=== PATIENT | female | born 1970 | race Hispanic/Latino ===

== ENCOUNTER → 2022-10-05 | Outpatient (CLI) | payer OTHER, SELFPAY ==
[2022-10-05 12:33] LABS: Vitamin D,25 Hydroxy 24.4 ng/mL
[2022-10-05 12:43] LABS: Absolute Lymphocyte Count 1.85 X10^3/uL (0.83-4.51); Absolute Neutrophil Count 2.3 X10^3/uL (2.0-7.7); Basophil# 0.03 X10^3/uL; Basophil% 0.6 % (0-1); Eosinophil# 0.12 X10^3/uL; Eosinophils% 2.5 % (0-5); Hematocrit 35.3 % (37-47); Hemoglobin 11.6 g/dL (12.0-15.0); Lymphocyte # 1.85 X10^3/ul (0.83-4.51); Lymphocyte % 38.9 % (19-41); Mean Corp Hgb Conc 32.9 g/dL (32-36); Mean Corpuscular Hgb 29.9 pg (27.0-32.0); Mean Platelet Vol. 9.5 fl (6.2-12.0); Monocyte# 0.43 X10^3/uL; NRBC Flagged by Analyzer 0 % (0-5); Neutrophil # 2.31 X10^3/uL (2.7-7.7); Neutrophil % 48.6 % (47-70); Platelet Count 249 K/mm3 (150-450); RBC Distribution Width CV 13.6 % (11.6-14.6); RBC Distribution Width SD 45.2 fl (35.1-43.9); Red Blood Count 3.88 M/mm3 (4.2-5.4); White Blood Count 4.8 K/mm3 (4.4-11.0)
[2022-10-05 12:46] LABS: ALB/GLOB Ratio 1.1 RATIO (0.9-2.4); AST(SGOT) 263 U/L (15-37); Alanine Aminotransfer ALT/SGPT 83 U/L (13-56); Albumin, Serum 3.7 g/dL (3.2-5.0); Alkaline Phosphatase 64 U/L (45-117); Anion Gap 6 (5-15); BUN 16 mg/dL (7-18); BUN/Creat Ratio 20.2 RATIO (10-20); Calcium,Total 8.8 mg/dL (8.5-10.1); Chloride 111 mmol/L (98-107); Cholesterol 223 mg/dL (200); Creatinine, Serum 0.79 mg/dL (0.55-1.02); EST Glomerular Filtration Rate 81 mL/min (>60); Est Glom Filt Rate - Afr Amer 98 mL/min (>60); Globulin 3.4 g/dL (2.2-4.2); Glucose 85 mg/dL (74-106); High Density Lipoprotein 67 mg/dL; Protein, Total 7.1 g/dL (6.4-8.2); Sodium Level 142 mmol/L (136-145); Thyroid Stim Hormone (TSH) 1.51 uIU/mL (0.358-3.74); Triglycerides 58 mg/dL; Very Low Density Lipoprotein 12 mg/dL (5-40)
== END | disposition home or self-care (01) ==
LOC: BIMLAB 09:09
PROVIDERS: PCP Internal Medicine; Referring Provider Internal Medicine; Visit Provider Internal Medicine
DX: E03.9 Hypothyroidism, unspecified (principal); F41.9 Anxiety disorder, unspecified; Z13.6 Encounter for screening for cardiovascular disorders
CPT/HCPCS: 36415; 80053; 80061; 82306; 84443; 85025

== ENCOUNTER → 2022-10-06 | Outpatient (CLI) | payer OTHER, SELFPAY ==
--- NOTE | 2022-10-06 07:46 | BI_ITS ---
MAMMOGRAPHY - BILATERAL SCREENING REASON FOR EXAM: Female, 52 years old. Routine annual screening examination. PERTINENT HISTORY: Cousin with breast cancer. No personal history of breast cancer. Bilateral breast implants in 2010. TECHNIQUE: Digital bilateral breast yasmeen (3D mammographic acquisition) in the CC and MLO projections. 2-D mediolateral oblique (MLO) and craniocaudad (CC) views of both breasts were obtained. Implant displacement views were also obtained. CAD: Full Field Digital Mammography with Computer Added Detection was performed. COMPARISON: None. FINDINGS: Breast Composition: There are scattered areas of fibroglandular density. There are no dominant masses or suspicious calcifications. Intact appearance of bilateral breast implants. No other significant abnormalities are identified. BI/SCRN MAMM (CAD)W/YASMEEN BILAT IMPRESSION: Negative screening mammogram. Yearly followup mammogram recommended. (A) ASSESSMENT CATEGORY: BIRADS Category 2: Benign. A letter regarding these results will be sent to the patient by the facility within 30 days. Approximately 10% of breast cancers are not detected by mammography. A normal mammogram should not delay biopsy of a clinically suspicious abnormality. Electronically Signed: Lowell Márquez DO at 15:08 EDT ,
== END | disposition home or self-care (01) ==
LOC: OPBI 07:45
PROVIDERS: PCP Internal Medicine; Referring Provider Internal Medicine; Visit Provider Internal Medicine
DX: Z12.31 Encounter for screening mammogram for malignant neoplasm of breast (principal)
CPT/HCPCS: 77063; 77067

== ENCOUNTER → 2022-10-12 | Outpatient (CLI) | payer OTHER, SELFPAY ==
--- NOTE | 2022-10-12 07:28 | US_ITS ---
Examination: Right upper quadrant ultrasound INDICATION: Elevated liver enzymes. TECHNIQUE: A dedicated right upper quadrant ultrasound was obtained including Doppler imaging. COMPARISON: None FINDINGS: Within the right hepatic lobe there is a well-circumscribed echogenic 1.3 x 1.3 x 1.4 cm round focus with no internal vascularity. The gallbladder is within normal limits. No reported positive sonographic Lau sign. The common bile duct measures 2.4 mm. The pancreas is within normal limits. The right kidney measures 8.4 cm in length and is within normal limits. US/Liver IMPRESSION: 1.3 x 1.3 x 1.4 cm round echogenic intrahepatic focus which may reflect a hemangioma or possible adenoma. No acute intra-abdominal process. Electronically Signed: Kanchan Hoffman MD at 9:02 EDT ,
== END | disposition home or self-care (01) ==
PROVIDERS: PCP Internal Medicine; Referring Provider Internal Medicine; Visit Provider Internal Medicine
DX: R74.8 Abnormal levels of other serum enzymes (principal)
CPT/HCPCS: 76705

== ENCOUNTER → 2022-10-27 | Outpatient (CLI) | payer OTHER, SELFPAY ==
[2022-10-27 12:55] LABS: AST(SGOT) 19 U/L (15-37); Alanine Aminotransfer ALT/SGPT 29 U/L (13-56); Albumin, Serum 3.5 g/dL (3.2-5.0); Alkaline Phosphatase 70 U/L (45-117); Bilirubin, Direct 0.11 mg/dL (0.00-0.30); Globulin 3.6 g/dL (2.2-4.2); Protein, Total 7.1 g/dL (6.4-8.2)
== END | disposition home or self-care (01) ==
LOC: BIMLAB 08:48
PROVIDERS: PCP Internal Medicine; Referring Provider Internal Medicine; Visit Provider Internal Medicine
DX: R74.8 Abnormal levels of other serum enzymes (principal)
CPT/HCPCS: 36415; 80076

== ENCOUNTER → 2023-05-21 | Outpatient (CLI) | payer OTHER, SELFPAY ==
[2023-05-24 18:08] LABS: HPV APTIMA, High Risk Negative (Negative)
== END | disposition home or self-care (01) ==
PROVIDERS: PCP Internal Medicine; Visit Provider Nurse Practitioner Women's Health
DX: Z12.4 Encounter for screening for malignant neoplasm of cervix (principal)
CPT/HCPCS: 87624; 88175; G0145

== ENCOUNTER → 2023-09-25 | Outpatient (CLI) | payer OTHER, SELFPAY ==
[2023-09-25 12:17] LABS: Absolute Lymphocyte Count 2.15 X10^3/uL (0.83-4.51); Absolute Neutrophil Count 1.9 X10^3/uL (2.0-7.7); Basophil# 0.03 X10^3/uL; Basophil% 0.7 % (0-1); Eosinophil# 0.12 X10^3/uL; Eosinophils% 2.7 % (0-5); Hematocrit 38.8 % (37-47); Hemoglobin 12.8 g/dL (12.0-15.0); Lymphocyte # 2.15 X10^3/ul (0.83-4.51); Lymphocyte % 47.9 % (19-41); Mean Corpuscular Hgb 29.9 pg (27.0-32.0); Mean Corpuscular Volume 90.7 fL (81-99); Mean Platelet Vol. 9.6 fl (6.2-12.0); Monocyte# 0.33 X10^3/uL; Monocyte% 7.3 % (0-10); NRBC Flagged by Analyzer 0 % (0-5); Neutrophil # 1.85 X10^3/uL (2.7-7.7); Neutrophil % 41.2 % (47-70); Platelet Count 266 K/mm3 (150-450); RBC Distribution Width CV 13.9 % (11.6-14.6); RBC Distribution Width SD 46.3 fl (35.1-43.9); Red Blood Count 4.28 M/mm3 (4.2-5.4); White Blood Count 4.5 K/mm3 (4.4-11.0)
[2023-09-25 13:27] LABS: Vitamin D,25 Hydroxy 27.1 ng/mL
[2023-09-25 13:53] LABS: ALB/GLOB Ratio 1.1 RATIO (0.9-2.4); AST(SGOT) 17 U/L (15-37); Alanine Aminotransfer ALT/SGPT 22 U/L (13-56); Albumin, Serum 3.9 g/dL (3.2-5.0); Alkaline Phosphatase 87 U/L (45-117); Anion Gap 7 (5-15); BUN 15 mg/dL (7-18); BUN/Creat Ratio 17.4 RATIO (10-20); Calcium,Total 9.6 mg/dL (8.5-10.1); Chloride 108 mmol/L (98-107); Cholesterol 238 mg/dL (200); Creatinine, Serum 0.86 mg/dL (0.55-1.02); EST Glomerular Filtration Rate 74 mL/min (>60); Est Glom Filt Rate - Afr Amer 89 mL/min (>60); Follicle Stimulating Hormone 88.4 mIU/mL; Globulin 3.7 g/dL (2.2-4.2); Glucose 95 mg/dL (74-106); High Density Lipoprotein 73 mg/dL; Luteinizing Hormone 43.1 mIU/mL; Potassium 4.1 mmol/L (3.5-5.1); Protein, Total 7.6 g/dL (6.4-8.2); Sodium Level 139 mmol/L (136-145); Thyroid Stim Hormone (TSH) 1.07 uIU/mL (0.358-3.74); Triglycerides 75 mg/dL; Very Low Density Lipoprotein 15 mg/dL (5-40)
[2023-09-28 22:07] LABS: Estrogen, Total, Serum 45 pg/mL (.)
== END | disposition home or self-care (01) ==
LOC: BIMLAB 08:53
PROVIDERS: PCP Internal Medicine; Visit Provider Internal Medicine
DX: E03.9 Hypothyroidism, unspecified (principal); E78.2 Mixed hyperlipidemia; Z78.0 Asymptomatic menopausal state; E55.9 Vitamin D deficiency, unspecified
CPT/HCPCS: 36415; 80053; 80061; 82306; 82672; 83001; 83002; 84443; 85025

== ENCOUNTER 2024-04-28 17:57 | Outpatient (RCR) | payer OTHER, SELFPAY ==
--- NOTE | 2024-10-15 08:51 | HP.PTEVAL_ITS ---
Patient's Visit Information Visit Information Visit Information: LAVON DONALD is a 54 year old F referred to Physical Therapy by HONORIO DAVIES with a diagnosis of PELVIC AND PERINEAL PAIN. Date of Evaluation: 04/28/24 Physical Therapist: Mago Klein, PT, Cert MDT Visit Plan Frequency: 1x/Week Duration: 2-4 Months Plan: PELVIC FLOOR THERAPY FOR STRENGTHENING, LENGTHENING/RELAXATION AND ENDURA NCE TRAINING. URINARY URGE AND FREQUENCY EDUCATION. HEALTHY BLADDER, BACK AND POSTURE HABIT EDUCATION AND TRAINING. TRAINING IN COORDINATION OF PELVIC FLOOR MUSCULATURE WITH HIP AND CORE (TRANSVERSE ABDOMINUS) MUSCULATURE. CORE STRENGTHENING. ANGEL LE ROM, STRETCHING AND STRENGTHENING. TRAINING IN ABDOMINAL CAVITY PRESSURE MGMT WITH ADL'S. HEP INSTRUCTION. 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 PATIENT REPORTS REPORTING INCONTINENCE TO HER DOCTOR AND THEY AGREED THAT TRYING PHYSICAL THERAPY FOR IT BEFORE SURGERY WOULD BE A GOOD IDEA. PATIENT DENIES PAIN IN HER GENITAL AREA. SHE STATES THE ONLY PAIN SHE GETS IS IN HER OVERIES. SHE ALSO DENIES PAIN IN HER PELVIC FLOOR REGION DURING PALPATION DURING HER DOCTORS EXAM AND STATES IT HURT UP HIGHER IN HER ABDOMEN DURING THE EXAM. THE MINUTE THAT I FEEL LIKE I HAVE TO GO TO THE BATHROOM I HAVE TO FIND ONE RIGHT AWAY OR I WILL LOSE CONTROL. PATIENT REPORTS SHE TRIES TO WEAR SPANDEX SO SHE CAN HURRY TO THE BATHROOM AND GET HER PANTS DOWN FAST POSSIBLE. PATIENT REPORTS SHE IS HAVING A HYSTERECTOMY FOR THE PAIN AND THERAPY FOR THE INCONTINENCE. Present since: 2011 Is it getting better, worse or staying the same: STAYING THE SAME Commenced as a result of: NO APPARENT REASON BUT THE PROBLEM DID START IN 2011 AND HAD SURGERY IN 2010. Symptoms at onset: SAME BUT MORE OFTEN AND MORE SEVERE. Worse: TRYING TO HOLD IT, RISING FROM SITTING AFTER GETTING URGE OR WITH A FULL BLADDER. UI SOMETIMES WITH COUGHING AND SNEEZING BUT NOT ALWAYS AND I WOULDN'T SAY THAT IS THE MAIN PROBLEM. ALMOST ALWAYS HAS UI WITH RUNNING AND JUMPING. Better: EASY ACCESS TO THE BATHROOM HELPS PREVENT ACCIDENTS. Previous history/Previous treatment: PATIENT DENIES PRIOR HISTORY OF PELVIC FLOOR THERAPY. Treatment this episode: DENIES ANY CURRENT BLADDER MEDICATION, TREATMENTS OR EX 'S. Gait: NORMAL How long can you delay the need to urinate: 0-2 MINUTES Prolapse (Falling out feeling): NO Frequency of Urination: ABOUT EVERY 2 HOURS DURING THE DAY AND 1-2 TIMES A NIGHT. Ability to stop urine flow: PARTIALLY Ability to initiate urine stream: YES - NEVER DIFFICULTY Dyspareunia: N/A Bowel Incontinence: NO Unexplained weight loss: NO OTHER: PATIENT DENIES ANY MAJOR ACCIDENTS OR RECENT FALLS. RELATES BACK PAIN TO LIFTING IN THE [place] IN 1993 WITH CHROINIC BACK PAIN EVER SINCR. PMH/Recent major surgery: PTSD, HYPOTHYROIDISM, MUTIPLE ABDOMINAL LAPROSCOPY SX'S FOR ENDOMETRIOSIS. CHRONIC BACK PAIN - H/O OF 3 CRACKED VERTEBRAE DX'D ON XRAY AT [facility] IN JAN 2024 IN CERVICAL AND THORACIC REGION UNKNOWN LEVELS. H/O CHIROPRACTIC SPINE TREATMENTS WITH LAST TREATMENT BEING 2022. BACK PT EVAL PENDING IN ANTIOCH END OF APR 2024. Objective Objective: Sitting/Standing Posture: SLOUCHED IN SITTING. MILD DECREASED LORDOSIS IN STANDING. NO RELEVANT LATERAL SHIFT. R ILIAC CREST HIGHER THAN L. Active Correction of posture: WORSE - INCREASES C/O LBP. Other Observations: INDEP GAIT WITHOUT AD AND TRANSFERS SIT TO STAND WITHOUT UE ASSIST. Sensory deficit: ANGEL LE'S GROSSLY INTACT AND SYMMETRICAL ROM deficit: TIGHT ANGEL LE ROTATORS ER >IR, ANGEL HS, HIP FLEXORS AND GASTROC SOLEUS COMPLEX'S. Motor deficit: ANGEL HIPS GROSSLY 4-/5, ANGEL KNEES 4/5, ANGEL ANKLES 4/5. PATIENT DENIED PAIN WITH TESTING BUT STATES SHE FEELS LIKE IF SHE DOES MUCH MORE IT WILL HURT. Reflexes: 2+ ANGEL LE'S. Dural Signs: POSITIVE LLE. Lumbar mvmt loss: flex - LADONNA ext - LADONNA R SG - LADONNA L SG - MOD PATIENT C/O LBP WITH LUMBAR ROM TESTING ALL PLANES. Core strength: POOR Palpation: NO ACUTE LUMBAR, SACRAL OR HIP TENDERNESS WITH LIGHT PALPATION. INCREASED MUSCLE TONE ANGEL PARASPINALS. FUNCTIONAL SCREEN: Incontinence Impact Questionnaire Score: 6 Urogenital Distress Inventory Score: 5 Goals Goal 1:: DECREASE URINARY LEAKAGE EPISODES TO ONE OR LESS PER MONTH Goal Time Frame: 8-12 Weeks Goal 2:: PATIENT WILL SUCCESSFULLY DELAY VOIDING LONG NEEDED WHEN URGENCY OCCURS TO SUCCESSFULLY MAKE IT TO THE BATHROOM IN TIME CALMLY. Goal Time Frame: 6-8 Weeks Goal 3:: PATIENT WILL DEMONSTRATE/COMMUNICATE 10 CONSISTENT AND CONSECUTIVE 10 SECOND PELVIC FLOOR MUSCLE CONTRACTIONS TO DEMONSTRATE IMPROVED PELVIC FLOOR ENDURANCE. Goal Time Frame: 8-12 Weeks Goal 4:: DEVELOP HEALTHY FLUID INTAKE HABITS WITH FLUID INTAKE OF ? BODY WEIGHT IN OUNCES PER DAY AND 2/3 BEING WATER. Goal Time Frame: 4-6 Weeks Goal 5:: NORMALIZE VOIDING FREQUENCEY TO EVERY 2.5 TO 3.5 HOURS. Goal Time Frame: 6-8 Weeks Goal 6:: PATIENT WILL BE INDEP WITH A HEP/HOME INSTRUCTIONS FOR CONTINUED IMPROVEMENT ONCE FORMAL PHYSICAL THERAPY CONCLUDES. Goal Time Frame: 8-12 Weeks Rehabilitation Potential Physical Therapy Diagnosis: CORE AND ANGEL LE WEAKNESS AND STIFFNESS WITH SYMPTOMS OR MIXED INCONTINENCE AND CHIEF C/O URGE INCONTINENCE. Rehabilitation Potential: Good Anticipated Interventions Patient/Client Instruction: Educate patient on: Condition, Plan of Care and Risk Factors For the Purpose of:: To improve self management Therapeutic Exercise to Include: Strength training, Endurance training, Body mechanics, Postural training, Flexibilty training, Neuromotor development and Relaxation training For the Purpose of:: To improve muscle performance and motor function, To improve ability of physical actions for home/community/work/leisure, To increase flexibility/ROM, To improve endurance and To improve self management Manual Therapy Techniques to Include: Trigger point massage and Soft tissue mobilization Comment: PELVIC FLOOR INTERNAL MANUAL VAGINAL TESTING AND TREATMENT NEEDED For the Purpose of:: To decrease pain, To improve nutrient delivery to tissue, To improve muscle performance and motor function and To decrease soft tissue restriction Text: Thank you for the opportunity to evaluate your patient. For Medicare and Medicare HMO plans, please review the plan of care and approve it. It will need to be FAXED BACK to us at [phone] for Medicare purposes. For Medicare only, by signing this I certify the plan of care. Please let me know if there are questions or concerns regarding this plan of care. Physician Signature: Date:
--- NOTE | 2024-10-15 08:54 | HP.PT.NRP ---
Patient Information Patient Information: LAVON DONALD was seen in my office for initial evaluation on 04/28/24. The following Plan of Care was established for this patient: POC Established Initial Frequency: 1x/Week Initial Duration: 2-4 Months Anticipated Interventions Patient/Client Instruction: Educate patient on: Condition, Plan of Care and Risk Factors For the Purpose of:: To improve self management Therapeutic Exercise to Include: Strength training, Endurance training, Body mechanics, Postural training, Flexibilty training, Neuromotor development and Relaxation training For the Purpose of:: To improve muscle performance and motor function, To improve ability of physical actions for home/community/work/leisure, To increase flexibility/ROM, To improve endurance and To improve self management Manual Therapy Techniques to Include: Trigger point massage and Soft tissue mobilization Comment: PELVIC FLOOR INTERNAL MANUAL VAGINAL TESTING AND TREATMENT NEEDED For the Purpose of:: To decrease pain, To improve nutrient delivery to tissue, To improve muscle performance and motor function and To decrease soft tissue restriction Last Seen Last Seen: This patient was last seen in our office 04/28/24. Pertinent comments regarding their Physical therapy will appear below: This patient has not returned to Physical Therapy for more visits and is appropriate to return to MD for further follow-up as needed. At this point I will be discontinuing this patient from physical therapy. I would be happy to see this patient again in the future if found appropriate by the physician. Thank you! Mago Klein, PT, Cert MDT
== END 2024-04-28 19:00 | disposition home or self-care (01) ==
LOC: PT 17:57
PROVIDERS: PCP Internal Medicine
DX: N80.9 Endometriosis, unspecified (principal); R10.2 Pelvic and perineal pain; G89.29 Other chronic pain
CPT/HCPCS: 97162; 97530

== ENCOUNTER → 2024-09-19 | Outpatient (CLI) | payer OTHER, SELFPAY ==
--- NOTE | 2024-09-19 08:57 | BI_ITS ---
EXAM: DIAG MAMM W/CAD, BILAT; BILAT BRST YASMEEN STAND ALONE; BREAST LIMITED UNILATERAL 09/19/2024 CLINICAL HISTORY: 54-year-old female presents with left breast pain. Family history of ovarian and uterine cancer in her mother at age 74. Family history of breast cancer in a maternal aunt in her 70s and a maternal cousin in her 60s. TECHNIQUE: Bilateral Diagnostic digital breast tomosynthesis with 2D and 3D images. Computer aided detection. Also, targeted left breast ultrasound was performed. COMPARISON: Prior exam(s) dated 10/06/2022. FINDINGS: MAMMOGRAM: TISSUE DENSITY: The breast tissue is composed of scattered area of fibroglandular density. There are bilateral prepectoral breast implants. Left breast: There are no mammographic abnormalities in the area of patient's reported pain in the lower outer quadrant of the left breast. Otherwise, there are no suspicious findings in the left breast. Right breast No significant masses, calcifications or other abnormalities are identified. ULTRASOUND: Targeted left breast ultrasound performed of the lower outer quadrant in the area of patient's reported pain demonstrates no suspicious sonographic findings. The left breast implant is partially visualized. BI/DIAG MAMM W/CAD, BILAT IMPRESSION: 1. There are no suspicious mammographic or sonographic findings in the area of patient's reported pain in the left breast. Clinical management is recommended for the pain. 2. There is no evidence of malignancy in either breast. OVERALL FINAL ASSESSMENT: BIRADS 1 NEGATIVE. RECOMMENDATION: Routine annual follow-up in 1 Year A letter with findings and recommendations will be mailed to the patient. Reading Location: [id number]
--- NOTE | 2024-09-19 09:46 | US_ITS ---
EXAM: DIAG MAMM W/CAD, BILAT; BILAT BRST YASMEEN STAND ALONE; BREAST LIMITED UNILATERAL 09/19/2024 CLINICAL HISTORY: 54-year-old female presents with left breast pain. Family history of ovarian and uterine cancer in her mother at age 74. Family history of breast cancer in a maternal aunt in her 70s and a maternal cousin in her 60s. TECHNIQUE: Bilateral Diagnostic digital breast tomosynthesis with 2D and 3D images. Computer aided detection. Also, targeted left breast ultrasound was performed. COMPARISON: Prior exam(s) dated 10/06/2022. FINDINGS: MAMMOGRAM: TISSUE DENSITY: The breast tissue is composed of scattered area of fibroglandular density. There are bilateral prepectoral breast implants. Left breast: There are no mammographic abnormalities in the area of patient's reported pain in the lower outer quadrant of the left breast. Otherwise, there are no suspicious findings in the left breast. Right breast No significant masses, calcifications or other abnormalities are identified. ULTRASOUND: Targeted left breast ultrasound performed of the lower outer quadrant in the area of patient's reported pain demonstrates no suspicious sonographic findings. The left breast implant is partially visualized. US/Breast Limited Unilateral IMPRESSION: 1. There are no suspicious mammographic or sonographic findings in the area of patient's reported pain in the left breast. Clinical management is recommended for the pain. 2. There is no evidence of malignancy in either breast. OVERALL FINAL ASSESSMENT: BIRADS 1 NEGATIVE. RECOMMENDATION: Routine annual follow-up in 1 Year A letter with findings and recommendations will be mailed to the patient. Reading Location: [id number]
--- NOTE | 2024-09-19 09:56 | BI_ITS ---
EXAM: DIAG MAMM W/CAD, BILAT; BILAT BRST YASMEEN STAND ALONE; BREAST LIMITED UNILATERAL 09/19/2024 CLINICAL HISTORY: 54-year-old female presents with left breast pain. Family history of ovarian and uterine cancer in her mother at age 74. Family history of breast cancer in a maternal aunt in her 70s and a maternal cousin in her 60s. TECHNIQUE: Bilateral Diagnostic digital breast tomosynthesis with 2D and 3D images. Computer aided detection. Also, targeted left breast ultrasound was performed. COMPARISON: Prior exam(s) dated 10/06/2022. FINDINGS: MAMMOGRAM: TISSUE DENSITY: The breast tissue is composed of scattered area of fibroglandular density. There are bilateral prepectoral breast implants. Left breast: There are no mammographic abnormalities in the area of patient's reported pain in the lower outer quadrant of the left breast. Otherwise, there are no suspicious findings in the left breast. Right breast No significant masses, calcifications or other abnormalities are identified. ULTRASOUND: Targeted left breast ultrasound performed of the lower outer quadrant in the area of patient's reported pain demonstrates no suspicious sonographic findings. The left breast implant is partially visualized. BI/Bilat Brst Yasmeen Stand Alone IMPRESSION: 1. There are no suspicious mammographic or sonographic findings in the area of patient's reported pain in the left breast. Clinical management is recommended for the pain. 2. There is no evidence of malignancy in either breast. OVERALL FINAL ASSESSMENT: BIRADS 1 NEGATIVE. RECOMMENDATION: Routine annual follow-up in 1 Year A letter with findings and recommendations will be mailed to the patient. Reading Location: [id number]
== END | disposition home or self-care (01) ==
PROVIDERS: PCP Internal Medicine; Referring Provider Nurse Practitioner Women's Health; Visit Provider Nurse Practitioner Women's Health
DX: N64.4 Mastodynia (principal)
CPT/HCPCS: 76642; 77062; 77066; G0279

== ENCOUNTER 2025-03-20 22:31 | Emergency (ER) | payer OTHER, SELFPAY ==
[2025-03-20 22:33] VITALS: BP 190/96; PULSE 84; RESP 18; TEMP 35.9; O2SAT 100; BMI 26.4
--- OUTSIDE RECORDS SUMMARY | 2025-03-20 22:52 | XMS RPT_ITS | CCD ---
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 10-05-2022 ALP [Catalytic activity/Vol] 64 U/L 45-117 [facility] ALT [Catalytic activity/Vol] 83 U/L 13-56 [facility] CO2 [Moles/Vol] 25.0 mmol/L 21.0-32.0 [facility] Globulin (S) [Mass/Vol] 3.4 g/dL 2.2-4.2 [facility] Urea nitrogen/Creatinine [Mass ratio] 20.2 mg/mg 10-20 [facility] Laboratory - Hematology and Cell countsOrdered By: Dr. Mccray on 10-05-2022 Erythrocyte distribution width (RBC) [Entitic vol] 45.2 fL 35.1-43.9 [facility] Erythrocyte distribution width (RBC) [Ratio] 13.6 % 11.6-14.6 [facility] Immature granulocytes/100 WBC (Bld) 0.400 % 0.0-0.9 [facility] Comment on above: IG% - Immature Granu locytes (promyelocytes, myelocytes and metamyelocytes) > 1% indicates that a LEFT SHIFT is Present. MCH (RBC) [Entitic mass] 29.9 pg 27.0-32.0 [facility] Nucleated RBC/100 WBC (Bld) [Ratio] 0 % 0-5 [facility] MCHC Auto (RBC) [Mass/Vol]Or dered By: Dr. Mccray on 10-05-2022 MCHC (RBC) [Mass/Vol] 32.9 g/dL 32-36 [facility] No Panel InformationOrdered By: Dr. Mccray on 10-05-2022 Estimated GFR (MDRD) Amer 98 mL/min >60 [facility] Comment on above: GFR Calc Estimated GFR (MDRD) Non-Af Amer 81 mL/min >60 [facility] Comment on above: Non- GFR Calc Thyroid Stimulating Hormone (TSH) 1.51 uIU/mL 0.358-3.74 [facility] Vitamin D 25-Hydroxy 24.4 ng/mL [facility] Comment on above: Vitamin D 25(OH) Sta tus Range Deficiency <20 ng/mL (50nmol/L) Insufficiency 20 - 30 ng/mL (50 - 75 nmol/L) Sufficiency 30 - 100 ng/mL (75 - 250 nmol/L) Toxicity >100 ng/mL (>250 nmol/L) Platelets bldOrdered By: Dr. Mccray on 10-05-2022 Platelets (Bld) [#/Vol] 249 10*3/uL 150-450 [facility] Serum or plasma albumin dodie urement (mass/volume)Ordered By: Dr. Mccray on 10-05-2022 Albumin [Mass/Vol] 3.7 g/dL 3.2-5.0 [facility] Serum or plasma albumin/glob ulin mass ratioOrdered By: Dr. Mccray on 10-05-2022 Albumin/Globulin [Mass ratio] 1.1 {ratio} 0.9-2.4 [facility] Serum or plasma calcium dodie urement (mass/volume)Ordered By: Dr. Mccray on 10-05-2022 Calcium [Mass/Vol] 8.8 mg/dL 8.5-10.1 [facility] Serum or plasma cholesterol in HDL measurement (mass/volume)Ordered By: Dr. Mccray on 10-05-2022 Cholesterol in HDL [Mass/Vol] 67 mg/dL >40 [facility] Comment on above: The drugs N-Acetylcy steine and Metamizole may falsely depress this assay. Reference Range HDL <40 mg/dL Low HDL Cholesterol HDL >or= 60 mg/dL High HDL Cholesterol Serum or plasma cholesterol in VLDL measurement (mass/volume)Ordered By: Dr. Mccray on 10-05-2022 Cholesterol in VLDL [Mass/Vol] 12 mg/dL 5-40 [facility] Serum or plasma creatinine m easurement (mass/volume)Ordered By: Dr. Mccray on 10-05-2022 Creatinine [Mass/Vol] 0.79 mg/dL 0.55-1.02 [facility] Comment on above: The validity of the calculated GFR & GFRAA in patients over 70 years has not been determined. Clinical correlation is essential. Serum or plasma low density lipoprotein (LDL) cholesterol measurement (mass/volume)Ordered By: Dr. Mccray on 10-05-2022 Cholesterol in LDL [Mass/Vol] 144 mg/dL 0-130 [facility] Serum or plasma urea nitroge n measurement (mass/volume)Ordered By: Dr. Mccray on 10-05-2022 Urea nitrogen [Mass/Vol] 16 mg/dL 7-18 [facility] Thin prep Papanicolaou smear with manual screeningOrdered By: Dr. Mccray on 10-05-2022 Thin prep Papanicolaou smear with manual screening 263 U/L 15-37 [facility] Thin prep Papanicolaou smear with manual screening 6 5-15 [facility] Vital Signs Date Time Vital Sign Value Performing Clinician Carmen dinh 10-24-2022 09:09-0400 Body height 154.[address] Gricel Mccray Work Phone: [facility] 10-24-2022 09:09-0400 Body mass index (BMI) [Ratio] 27.6 kg/m2 Dr. Gricel Mccray Work Phone: [facility] 10-24-2022 09:09-0400 Body temperature 97.2 [degF] Dr. Gricel Mccray Work Phone: [facility] 10-24-2022 09:09-0400 Body weight 66.[address] Gricel Mccray Work Phone: [facility] 10-24-2022 09:09-0400 Diastolic blood pressure 84 mm[Hg] Dr. Gricel Mccray Work Phone: [facility] 10-24-2022 09:09-0400 Heart rate 62 /min Dr. Gricel Mccray Work Phone: [facility] 10-24-2022 09:09-0400 Respiratory rate 17 /min Dr. Gricel Mccray Work Phone: [facility] 10-24-2022 09:09-0400 SaO2% (BldA) [Mass fraction] 98 % Dr. Gricel Mccray Work Phone: [facility] 10-24-2022 09:09-0400 Systolic blood pressure 127 mm[Hg] Dr. Gricel Mccray Work Phone: [facility] 10-04-2022 10:02-0400 Body height 154.[address] Gricel Mccray Work Phone: [facility] 10-04-2022 10:02-0400 Body mass index (BMI) [Ratio] 28.4 kg/m2 Dr. Gricel Mccray Work Phone: [facility] 10-04-2022 10:02-0400 Body temperature 97.6 [degF] Dr. Gricel Mccray Work Phone: [facility] 10-04-2022 10:02-0400 Body weight 68.[address] Gricel Mccray Work Phone: [facility] 10-04-2022 10:02-0400 Diastolic blood pressure 82 mm[Hg] Dr. Gricel Mccray Work Phone: [facility] 10-04-2022 10:02-0400 Heart rate 72 /min Dr. Gricel Mccray Work Phone: [facility] 10-04-2022 10:02-0400 Respiratory rate 18 /min Dr. Grciel Mccray Work Phone: [facility] 10-04-2022 10:02-0400 SaO2% (BldA) [Mass fraction] 97 % Dr. Gricel Mccray Work Phone: [facility] 10-04-2022 10:02-0400 Systolic blood pressure 122 mm[Hg] Dr. Gricel Mccray Work Phone: [facility] Encounters Encounter Date Encounter Type Care Provider Facility Start: 09-19-2024 End: 09-19-[address] Gricel Mccray MD Work Phone: [facility] Work Phone: Start: 09-19-2024 End: 09-19-2024 Patient encounter procedure STEPHEN MEHTA -Outpatient Breast [facility] Work Phone: Start: 09-19-2024 End: 09-19-2024 ambulatory STEPHEN KRISHNA Facility:[facility] Start: 04-28-2024 End: 04-28-2024 ambulatory ABUNDIO HAMZAH Facility:[facility] Start: 03-28-2024 End: 03-28-2024 Transcribe Orders Provider Not In System [facility] Comment on above: Chronic pelvic pain in female (Primary Dx); Endometriosis Start: 10-27-2022 End: 10-27-[address] Gricel Mccray Work Phone: [facility] Work Phone: Start: 10-27-2022 End: 10-27-[address] Gricel Mccray Work Phone: [facility]-Laboratory, [facility] Start: 10-24-2022 End: 10-24-[address] Gricel Mccray Work Phone: [facility] Work Phone: Start: 10-12-2022 End: 10-12-[address] Gricel Mccray Work Phone: [facility] Work Phone: Start: 10-12-2022 End: 10-12-[address] Gricel Mccray Work Phone: [facility]-Ultrasound, [facility] Work Phone: Start: 10-06-2022 End: 10-06-[address] Gricel Mccray Work Phone: [facility]-Outpatient Breast Imaging Start: 10-05-2022 End: 10-05-[address] Gricel Mccray Work Phone: [facility] Work Phone: Start: 10-05-2022 End: 10-05-[address] Gricel Mccray Work Phone: [facility], [facility] Start: 10-04-2022 End: 10-04-[address] Gricel Mccray Work Phone: [facility] Internal Medicine Procedures Date Procedure Procedure Detail Performing Clinician Start: 09-19-[address] Gricel smith MD Work Phone: Start: 09-19-[address] Gricel Mccray MD Work Phone: Start: 10-12-[address] Gricel thomas Work Phone: Start: 10-06-[address] Gricel Mccray Work Phone: H/O: surgery History of remov al of ovarian cyst Dr. Gricel Mccray Work Phone: Plan of Treatment Date Care Activity Detail Author Start: 10-04-2022 Patient referral [facility] Work Phone: Patient referral [facility] Work Phone: Immunizations Immunization Date Immunization Notes Care Provider Fa [facility] 02-18-2022 Covid Pfizer Bivalen t Booster Dr. Gricel Mccray Work Phone: [facility] Payers Date Payer Category Payer Unknown [id number] 03 2024 Self-pay 2024 Unknown [id number] Unknown [id number] Unknown [id number] Unknown [id number] Social History Date Type Detail Facility Start: 10-04-2022 End: 10-24-2022 Tobacco smoking status NHIS Unknown if ever smoked [facility] Start: 1970 Sex Assigned At Female [facility] Gender identity Not on file [facility] Start: 09-25-2023 Tobacco smoking stat us NHIS Ex-smoker (finding) [facility] Radiology Diagnostic study note 09-19-2024 Note Date & Type Note Facility 09-19-2024 Radiology Diagnostic study note [facility] Imaging Services [address] [place] [id number] Breast Limited Unilateral MR#: [id number] Acct: [id number] Name: LAVON DONALD Rep #: [id number] : 1970 F 54 From: Jordyn Spencer MD PCP: Dr. Gricel Mccray MD Status: REG CLI Study:Breast Limited Unilateral Date of Exam: 09/19/24 Exam# [id number] Ordering Dr: BRANDON KRISHNA EXAM: DIAG MAMM W/CAD, BILAT; BILAT BRST MIKE STAND ALONE; BREAST LIMITED UNILATERAL 09/19/2024 CLINICAL HISTORY: 54-year-old female presents with left breast pain. Family history of ovarian and uterine cancer in her mother at age 74. Family history of breast cancer in a maternal aunt in her 70s and a maternal cousin in her 60s. TECHNIQUE: Bilateral Diagnostic digital breast tomosynthesis with 2D and 3D images. Computer aided detection. Also, targeted left breast ultrasound was performed. COMPARISON: Prior exam(s) dated 10/06/2022. FINDINGS: MAMMOGRAM: TISSUE DENSITY: The breast tissue is composed of scattered area of fibroglandular density. There are bilateral prepectoral breast implants. Left breast: There are no mammographic abnormalities in the area of patient's reported pain in the lower outer quadrant of the left breast. Otherwise, there are no suspicious findings in the left breast. Right breast No significant masses, calcifications or other abnormalities are identified. ULTRASOUND: Targeted left breast ultrasound performed of the lower outer quadrant in the area of patient's reported pain demonstrates no suspicious sonographic findings. The left breast implant is partially visualized. US/Breast Limited Unilateral IMPRESSION: 1. There are no suspicious mammographic or sonographic findings in the area of patient's reported pain in the left breast. Clinical management is recommended for the pain. 2. There is no evidence of malignancy in either breast. OVERALL FINAL ASSESSMENT: BIRADS 1 NEGATIVE. RECOMMENDATION: Routine annual follow-up in 1 Year A letter with findings and recommendations will be mailed to the patient. Reading Location: [id number] CC: Dr. Gricel Mccray MD; TYSON LAZCANO ~ Diaper Folder: Signed [facility] Evaluation note Note Date & Type Note Facility Evaluation note Diagnosis Onset Date Anxiety acute Sleep concern noneactive Screening for colon cancer n oneactive Acquired hypothyroidism none active Screening for cardiovascular condition noneactive Overweight (BMI 25.0-29.9) n oneactive Breast pain, left noneactive Screening for cervical cancer noneactive Grief noneactive Right foot pain noneactive Screening for breast cancer noneactive [facility] Work Phone: Evaluation note Note Date & Type Note Facility Evaluation note Diagnosis Onset Date Anxiety acute Sleep concern noneactive Screening for colon cancer n oneactive Acquired hypothyroidism none active Screening for cardiovascular condition noneactive Overweight (BMI 25.0-29.9) n oneactive Breast pain, left noneactive Screening for cervical cancer noneactive Grief noneactive Right foot pain noneactive Screening for breast cancer noneactive Atrophic skin acute Breast pain acute Lipodystrophy acute [facility] Work Phone: Evaluation note Note Date & Type Note Facility Evaluation note Diagnosis Chronic pelvic pain in female- Primary Unspecified symptom associated with female genital organs Endometriosis Endometriosis, site unspecified documented in this encounter [facility] Evaluation note Note Date & Type Note Facility Evaluation note No assessment information availa ble [facility] Work Phone: Reason for referral (narrative) Note Date & Type Note Facility Reason for referral (narrative) No reason for referral information available [facility] Work Phone: Chief Complaint and Reason for Visit Chief Complaint Check up SCREENING Reason for Visit Anxiety Sleep concern Screening for colon cancer Acquired hypothyroidism Screening for cardiovascular condition Overweight (BMI 25.0-29.9) Breast pain, left Screening for cervical cancer Grief Right foot pain Screening for breast cancer Chief Complaint Check up SCREENING Abnormal levels of other serum enzymes Reason for Visit Anxiety Sleep concern Screening for colon cancer Acquired hypothyroidism Screening for cardiovascular condition Overweight (BMI 25.0-29.9) Breast pain, left Screening for cervical cancer Grief Right foot pain Screening for breast cancer Chief Complaint Check up SCREENING Abnormal levels of other serum enzymes CONSULT-BREAST IMPLANTS REMOVED Reason for Visit Anxiety Sleep concern Screening for colon cancer Acquired hypothyroidism Screening for cardiovascular condition Overweight (BMI 25.0-29.9) Breast pain, left Screening for cervical cancer Grief Right foot pain Screening for breast cancer Atrophic skin Breast pain Lipodystrophy Chief Complaint Admit Date LT OUTER CURVE OF BREAST DISCOMFORT September 19, 2024 8:50am Family History No Family History Records Found Relationship Condition Age at Onset Recorded Date/T tiffany mother Angina pectoris Unknown Anxiety Unknown Malignant neoplasm of cervix Unknown Hypertension Unknown father Cerebrovascular accident (CVA) Unknown Hypotension Unknown Gout Unknown aunt Malignant neoplasm of breast Unknown Relationship Condition Age at Onset Recorded Date/T tiffany mother Angina pectoris Unknown Anxiety Unknown Malignant neoplasm of cervix Unknown Hypertension Unknown father Cerebrovascular accident (CVA) Unknown Hypotension Unknown Gout Unknown aunt Malignant neoplasm of breast Unknown grandfather Diabetes mellitus Unknown Relationship Condition Age at Onset Recorded Date/T tiffany mother Angina pectoris Unknown Anxiety Unknown Malignant neoplasm of cervix Unknown Hypertension Unknown father Cerebrovascular accident (CVA) Unknown Hypotension Unknown Gout Unknown aunt Malignant neoplasm of breast Unknown grandfather Diabetes mellitus Unknown grandmother Malignant neoplasm Unknown unrelated friend Malignant neoplasm of breast Unknown Summary Purpose Advance Directives No Advanced Directives Records Found Additional Source Comments Care Teams (unrecognized sec tion and content) Team Status: Active Member Role Status Dates Dr. Gricel Mccray MD Primary Care Provider Active Team Status: Inactive Member Role Status Dates Dr. Gricel Mccray MD Primary Care Pro vider, Attending Provider, Referring Provider Active Team Status: Active Member Role Status Dates Dr. Gricel Mccray MD Primary Care Pro vider, Attending Provider, Referring Provider Active Team Status: Inactive Member Role Status Dates Dr. Gricel Mccray MD Primary Care Provider, Referri ng Provider Active Dr. Elizabeth Quintero MD Attending Provider Active Team Status: Inactive Member Role Status Dates Dr. Gricel Mccray MD Primary Care Provider Active Start: September 19, 2024 End: September 19, 2024 TYSON LAZCANO Attending Provider Active S tart: September 19, 2024 End: September 19, 2024 TYSON LAZCANO Referring Provider Active S tart: September 19, 2024 End: Mechelle 6th, 2025 Team Status: Active Member Role/Relationship Status Dates Dr. Gricel Mccray MD Primary Care Provider Active Team Status: Inactive Member Role/Relationship Status Dates Dr. Gricel Mccray MD Primary Care Provider Active Start: September 19, 2024 End: September 19, 2024 TYSON LAZCANO Attending Provider Active S tart: September 19, 2024 End: September 19, 2024 TYSON LAZCANO Referring Provider Active S tart: September 19, 2024 End: September 19, 2024 Goals (unrecognized section and content) Goals may be documented in a n alternate sectionGoals may be documented in an alternate sectionGoals may be documented in an alternate sectionGoals may be documented in an alternate sectionGoals may be documented in an alternate section INFORMATION SOURCE (unrecogn ized section and content) DATE CREATED AUTHOR 10/17/2024 [facility] FOR RECORDS PERTAINING TO PATIENTS WHO ARE OR HAVE BEEN ENROLLED IN A CHEMICAL DEPENDENCY/SUBSTANCEABUSE PROGRAM, SOME INFORMATION MAY BE OMITTED. This clinical summary was aggregated from multiple sources. Caution should be exercised in using it in the provision of clinical care. This summary normalizes information from multiple sources, and as a consequence, information in this document may materially change the coding, format and clinical context of patient data. In addition, data may be omitted in some cases. CLINICAL DECISIONS SHOULD BE BASED ON THE PRIMARY CLINICAL RECORDS. [employer] [facility]. provides no warranty or guarantee of the accuracy or completeness of information in this document.
[2025-03-20 23:00] VITALS: BP 180/104; PULSE 77; RESP 16; O2SAT 100
--- NOTE | 2025-03-20 23:02 | EKG12_ITS ---
Test Reason : DYSRHYTHMIA Blood Pressure : */* mmHG Vent. Rate : 72 BPM Atrial Rate : 72 BPM P-R Int : 168 ms QRS Dur : 118 ms QT Int : 448 ms P-R-T Axes : 65 -38 36 degrees QTcB Int : 490 ms Normal sinus rhythm Left axis deviation Left ventricular hypertrophy with QRS widening ( R in aVL , Ary product ) Septal infarct , age undetermined Abnormal ECG Confirmed by ADRIANA SCHULZ, RAE ([id number]), editor magazine CURTIS GUADALUPE ([id number]) on 03/23/2025 6:08:56 AM Referred By: Confirmed By: RAE WRIGHT MD
--- NOTE | 2025-03-20 23:10 | RAD_ITS ---
PROCEDURE: CHEST 1 VIEW (PORTABLE) 03/20/2025 REASON FOR EXAM: HYPERTENSION TECHNIQUE: Frontal view of the chest. FINDINGS: The heart is normal in size. The lungs are clear. No acute osseous abnormalities. RAD/Chest 1 View (Portable) IMPRESSION: No Acute Findings. Reading Location: [id number]
[2025-03-20 23:13] LABS: Hematocrit 35.4 % (37-47); Hemoglobin 12.1 g/dL (12.0-15.0); Immature Granulocytes Count 0.010 X10^3/uL (0.0-0.0); Mean Corp Hgb Conc 34.2 g/dL (32-36); Mean Corpuscular Volume 86.6 fL (81-99); Mean Platelet Vol. 9.1 fl (6.2-12.0); NRBC Flagged by Analyzer 0 % (0-5); Platelet Count 240 K/mm3 (150-450); RBC Distribution Width CV 13.4 % (11.6-14.6); RBC Distribution Width SD 42.1 fl (35.1-43.9); Red Blood Count 4.09 M/mm3 (4.2-5.4); White Blood Count 8.2 K/mm3 (4.4-11.0)
[2025-03-20 23:19] VITALS: BP 170/94; PULSE 82; RESP 16; O2SAT 100
[2025-03-20 23:24] LABS: Mucous, Urine 0 SEEN /hpf (<or=2+); Squamous Epithelial Cells - UA 0 SEEN /hpf (5-10)
[2025-03-20 23:25] LABS: Color, Urine Straw (Yellow); Glucose, Dipstick Normal (Normal); Ketone-Dipstick Negative (Negative); Leukocyte Esterase-Dipstick Negative /ul (Negative); Nitrite-Dipstick Negative (Negative); Occult Blood-Urine 10 /ul (Negative); Protein-Dipstick Negative (Negative); Specific Gravity, Urine 1.005 (1.002-1.030); Urine Bilirubin Dipstick Negative (Negative)
[2025-03-20 23:30] VITALS: BP 145/96; PULSE 68; RESP 16; O2SAT 100
[2025-03-20 23:34] LABS: Troponin T High Sensitivity 14 ng/L (<=14)
[2025-03-20 23:35] LABS: AST(SGOT) 27 U/L (<=31); Alanine Aminotransfer ALT/SGPT 24 U/L (<=34); Albumin, Serum 4.3 g/dL (3.5-5.0); Alkaline Phosphatase 77 U/L (35-104); Anion Gap 14 (5-15); BUN 13 mg/dL (4-19); BUN/Creat Ratio 15.3 RATIO (10-20); Calcium,Total 9.5 mg/dL (7.6-11.0); Carbon Dioxide 21.4 mmol/L (21.0-32.0); Chloride 98 mmol/L (98-108); Estimated Creatinine Clearance 65.75 ml/min (50-250); Globulin 2.7 g/dL (2.2-4.2); Glucose 99 mg/dL (70-99); Potassium 3.7 mmol/L (3.3-5.1)
[2025-03-20 23:37] LABS: Red Blood Cells-Urine 0-5 SEEN /hpf (0-5)
[2025-03-20 23:45] VITALS: BP 136/90; PULSE 67; RESP 16; O2SAT 99
--- NOTE | 2025-03-20 23:53 | EX.ED.DYSGE1 ---
HPI History of Present Illness Chief Complaint: Hypertension Narrative Narrative: Patient was seen and examined after presenting to ED for elevated blood pressure she states that she was at home and noticed her cell feeling anxious so she decided to take her blood pressure she reports a systolic blood pressure of 140 so she decided to lay down recheck it several minutes later and she reports when it was 144 systolic she decided to come in for evaluation she states that she feels anxious and lightheaded upon arrival she had blood pressures of 170s and 190s systolic she is not on any antihypertensive. [facility] Medical History Endometriosis determined by laparoscopy Polycystic ovary High cholesterol UTI (urinary tract infection) History of foot fracture Endometriosis Wears glasses Hypothyroidism Hx of seasonal allergies Home Medications ?Medication ?Instructions ?Recorded ?Last Taken ?Type bupropion HCl 150 mg 24 hr tablet, 150 mg PO QAM #90 tabs 09/25/23 Unknown Rx extended release (Wellbutrin XL) levothyroxine 75 mcg tablet 75 mcg PO DAILY #30 tabs 09/03/24 Unknown Rx Allergy/AdvReac Type Severity Reaction Status Date / Time No Known Allergies Allergy Verified 03/20/25 22:34 Family History Mother Angina pectoris, unspecified Anxiety Cervical cancer Hypertension Father CVA (cerebral vascular accident) Hypotension Gout Aunt Breast cancer Grandfather Diabetes Grandmother , maternal Cancer Unknown Breast cancer Surgical History S/P LEEP H/O laparoscopy History of removal of ovarian cyst History of bone graft Hx of breast implants, bilateral Social History household members: none housing: house current occupational status: employed 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 sexually active: No Smoking Status: Former smoker quit date: 02/28/21 pack-years: 4 Electronic Cigarette Use: not used alcohol intake: current Alcohol type: wine details: not since September 2021 substance use type: does not use what type of physical activity do you participate in: walking, running and yoga frequency: 3-4 times per week seatbelt use: always do you feel safe at home: Yes additional social history: Does Take Aspirin As Needed Does Take Ibuprofen As Needed ROS ROS ED ROS Narrative Pertinent Positives: Hypertension anxiety lightheaded Pertinent Negatives: Fevers chills headache vision changes chest pain pressure shortness of breath abdominal pain use of anticoagulation The remainder of review of systems negative unless otherwise stated in the HPI above. Systems reviewed including constitutional, psychiatric, cardiovascular, respiratory, integument, HENT, gastrointestinal. EXAM Physical Exam Narrative Exam Narrative: Patient is afebrile she is hypertensive here but otherwise stable. Normal heart and lung sounds. Abdomen soft nontender nondistended no palpable pulsatile mass she has intact and equal MSPs in all extremities no lower extremity edema or calf tenderness normal range of motion of her head and neck again she does not appear toxic or in distress. Pupils equal round reactive to light. Const Vital Signs: 03/20/25 22:33 03/20/25 22:42 03/20/25 23:00 Temperature 96.6 F L Temperature Source Temporal Pulse Rate 84 77 Respiratory Rate 18 16 Respiratory Effort Normal Non-Labored Respiratory Pattern Normal Blood Pressure 190/96 H 180/104 H Blood Pressure Mean 127 127 Pulse Ox 100 100 Oxygen Delivery Method Room Air Room Air 03/20/25 23:19 03/20/25 23:30 03/20/25 23:45 Temperature Temperature Source Pulse Rate 82 68 67 Respiratory Rate 16 16 16 Respiratory Effort Respiratory Pattern Blood Pressure 170/94 H 145/96 H 136/90 H Blood Pressure Mean 113 111 104 Pulse Ox 100 100 99 Oxygen Delivery Method Room Air Room Air Room Air 03/21/25 00:00 03/21/25 00:30 Temperature Temperature Source Pulse Rate 65 Respiratory Rate 16 Respiratory Effort Respiratory Pattern Blood Pressure 123/91 H 140/82 H Blood Pressure Mean 102 101 Pulse Ox 100 Oxygen Delivery Method Room Air MDM MDM MDM Narrative Medical decision making narrative: Nursing notes, triage notes, available previous documentation, and vital signs were reviewed. Any discrepancies noted were addressed. Differential Diagnoses: Will evaluate for evidence of endorgan damage but I have lower suspicion for that or aortic etiology it could be her anxiety causing her to have elevated blood pressures Labs Reviewed: No leukocytosis leukopenia or anemia electrolyte abnormality or evidence of renal insufficiency or transaminitis her troponin is 14. Delta troponin is pending urine without evidence of infection. Imaging Reviewed: Personally reviewed and interpreted by me: Chest x-ray no pneumonia edema widened mediastinum or pneumothoraces EKG: Normal sinus rhythm rate of 72. I do not see evidence of ACS. QTc is 490 however. No evidence of AV Block. No short MO intervals, wide QRS, or Delta waves indicative of WPW. No evidence of dagger-like q waves or LVH indicative of Hypertrophic Cardiomyopathy. No evidence of Brugada Syndrome. EKG interpretation is noted and agreed to in the EMR. The interpretation of this patient's EKG contributed directly to the care and management of this patient. Previous Documentation Reviewed: None available or applicable at this time. ED Course: Patient presenting with feeling anxious at home and having hypertension here labs so far do not show evidence of endorgan damage she is pending a delta troponin however her chest x-ray was unremarkable I did advise her that it would be best for her to keep a blood pressure diary for a few weeks so that way she could discuss with her primary care doctor and they can evaluate for trends and the need for use of antihypertensive medications as she seems to have more isolated episodes of the hypertension. Delta troponin basically flat at 17. Patient can follow-up outpatient after having a blood pressure diary This note was made utilizing voice recognition software. All attempts were made to correct spelling or other errors prior to note completion. However, due to the fast-paced nature of emergency medicine, some errors may still be present. Lab Data Labs: Laboratory Results - last 24 hr 03/20/25 03/20/25 03/21/25 23:05 23:15 00:48 WBC 8.2 RBC 4.09 L Hgb 12.1 Hct 35.4 L MCV 86.6 MCH 29.6 MCHC 34.2 RDW Std Deviation 42.1 RDW Coeff of Fatmata 13.4 Plt Count 240 MPV 9.1 Immature Gran % (Auto) 0.100 Neut % (Auto) 42.5 L Lymph % (Auto) 46.6 H Teller % (Auto) 8.6 Eos % (Auto) 1.6 Baso % (Auto) 0.6 Absolute Neuts (auto) 3.5 Absolute Lymphs (auto) 3.81 Nucleated RBC % 0 Sodium 133 Potassium 3.7 Chloride 98 Carbon Dioxide 21.4 Anion Gap 14 BUN 13 Creatinine 0.88 Estim Creat Clear Calc 65.75 Est GFR (MDRD) Non-Af 79 BUN/Creatinine Ratio 15.3 Glucose 99 Calcium 9.5 Total Bilirubin 0.30 AST 27 ALT 24 Alkaline Phosphatase 77 Troponin T High Sens 14 Troponin T Hi Sens 2 Hr 17 H Total Protein 6.9 Albumin 4.3 Globulin 2.7 Albumin/Globulin Ratio 1.6 Urine Color Straw Urine Clarity Clear Urine pH 7.0 Ur Specific [place] 1.005 Urine Protein Negative Urine Glucose (UA) Normal Urine Ketones Negative Urine Occult Blood 10 H Urine Nitrite Negative Urine Bilirubin Negative Urine Urobilinogen Normal Ur Leukocyte Esterase Negative Urine RBC 0-5 SEEN Urine WBC 0 SEEN Ur Squamous Epith Cells 0 SEEN Urine Bacteria 0 SEEN Urine Mucus 0 SEEN Radiography Diagnostic Testing: Clinical Impression(s) from Imaging Studies Chest X-Ray 03/20/25 23:10 IMPRESSION: No Acute Findings. Reading Location: [address] Discharge Plan Triage Chief Complaint: Hypertension ED Provider: Arturo Ellington Dx/Rx/DC Orders Clinical Impression: Hypertension, Anxiety Instructions: ED Hypertension, To Be Confirmed Prescriptions: No Action bupropion HCl [Wellbutrin XL] 150 mg tablet extended release 24 hr 150 mg PO QAM Qty: 90 0RF levothyroxine 75 mcg tablet 75 mcg PO DAILY Qty: 30 0RF [facility] [Primary Care Provider, None] Activity Restrictions/Additional Instructions: You need to establish with your doctor and have a blood pressure log I want you to start taking daily blood pressures we can see a trend to see if you are consistently elevated so that way we do not prescribe you with a blood pressure medicine and then it actually ends up taking your blood pressure and making it too low. So if you do start to develop any worsening symptoms do not hesitate to return but you should be taking your anxiety medications as prescribed as well Print Language: Vietnamese Disposition Disposition: Home, Self Care
[2025-03-21] VITALS: BP 123/91; PULSE 65; RESP 16; O2SAT 100
[2025-03-21 00:30] VITALS: BP 140/82
[2025-03-21 01:41] LABS: Troponin T High Sens 2 HR 17 ng/L (<=14)
[2025-03-21 02:00] VITALS: BP 111/76; PULSE 55; RESP 16; O2SAT 97
[2025-03-21 02:31] VITALS: BP 111/76; PULSE 55; RESP 16; TEMP 36.6; O2SAT 97
== END 2025-03-21 02:32 | disposition home or self-care (01) ==
PROVIDERS: Emergency Provider Specialist/Technologist Athletic Trainer; Visit Provider Specialist/Technologist Athletic Trainer
DX: I10 Essential (primary) hypertension (principal); F41.9 Anxiety disorder, unspecified; Z79.899 Other long term (current) drug therapy; Z87.891 Personal history of nicotine dependence
CPT/HCPCS: 71045; 80053; 81001; 84484; 85025; 93005; 99283; A4216

== ENCOUNTER 2025-04-08 18:32 | Emergency (ER) | payer OTHER, SELFPAY ==
[2025-04-08 18:32] VITALS: BP 162/99; PULSE 66; RESP 18; TEMP 36.8; O2SAT 99; BMI 25.2
--- NOTE | 2025-04-08 19:02 | RAD_ITS ---
PROCEDURE: CHEST PA AND LATERAL 04/08/2025 REASON FOR EXAM: HTN TECHNIQUE: Procedure Code: RADCXR Modality: DX Procedure: CHEST PA AND LATERAL COMPARISON: None available. FINDINGS: Hardware: None Heart: The heart size is normal. Mediastinum: The mediastinal contour is unremarkable. Lungs: The lungs are clear. No pneumothorax or pleural effusion. Bones: The bones are unremarkable. RAD/Chest PA and Lateral IMPRESSION: NO ACUTE FINDINGS. Reading Location[facility]
--- NOTE | 2025-04-08 19:02 | EKG12_ITS ---
Test Reason : Blood Pressure : */* mmHG Vent. Rate : 59 BPM Atrial Rate : 59 BPM P-R Int : 186 ms QRS Dur : 114 ms QT Int : 460 ms P-R-T Axes : 52 -35 -19 degrees QTcB Int : 455 ms Sinus bradycardia Left axis deviation Left ventricular hypertrophy ( R in aVL , Agustin product , Romhilt-Hilliard ) Nonspecific T wave abnormality Abnormal ECG (RBBB and left anterior fascicular block) Confirmed by Porfirio Garcia ([id number]), newspaper editor CARMELLA JACKSON ([id number]) on 04/10/2025 8:02:13 AM Referred By: Confirmed By: Porfirio Garcia
--- OUTSIDE RECORDS SUMMARY | 2025-04-08 19:02 | XMS RPT_ITS | CCD ---
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 Gricel Mccray Primary Care Provider Dr. Gricel Mccray Attending Provider Dr. Gricel Mccray Referring Provider Dr. Elizabeth Quintero Attending Provider [phone] Unavailable Primary Care Provider Dr. Gricel Momin MD Primary Care Provider STEPHEN CANDELARIO Attending Provider [phone] STEPHEN CANDELARIO Referring Provider STEPHEN KRISHNA Attending Unavailable Gricel Mccray Primary [...] PTon 10-15-2024 Inital Evaluation (1) - PT [facility] Physical Therapy [facility] [address] [place] [address]. 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 H/O CHIROPRACTIC SPINE TREATMENTS WITH LAST TREATMENT BEING 2022. BACK PT EVAL PENDING IN [place] END OF APR 2024. Objective Objective: Sitting/Standing [...] TO SUCCESSFULL (more content not included)... Normal [facility] Mike Stand Aloneo n 09-19-2024 Bilat Brst Mike Stand Alone [facility] Imaging Services [address] [place], [place] [address] Bilat Brst Mike Stand Alone MR#: [id number] Acct: [id number] Name: LAVON DONALD Rep #: [id number] : 1970 F 54 From: Lisa Spencer MD PCP: Dr. Gricel Mccray MD Status: REG CLI Study: Bilat Brst Mike Stand Alone Date of Exam: 10/08 Exam# [id number] Ordering Dr: STEPHEN KRISHNA EXAM: DIAG MAMM [...] be mailed to the patient. Reading Location: [id number] CC: Dr. Gricel Mccray MD; TYSON LAZCANO Floor Specialist: Signed Normal [facility] Breast Limited Unilateralon 09-19-2024 Breast Limited Unilateral [facility] Imaging Services [address] [place], [place] [address] Breast Limited Unilateral MR#: [id number] Acct: [id number] Name: LAVON DONALD Rep #: [id number] : 1970 F 54 From: Lisa Spencer MD PCP: Dr. Gricel Mccray MD Status: REG CLI Study: Breast Limited Unilateral Date of Exam: Exam# [id number] Ordering Dr: STEPHEN KRISHNA EXAM: DIAG MAMM [...] be mailed to the patient. Reading Location: [facility] CC: Dr. Gricel Mccray MD; TYSON LAZCANO Floor Specialist: Signed Normal [facility] Breast imaging reportOrdered By: Lisa Spencer on 09-19-2024 Study report [facility] Imaging Services [address] [place], [place] [address] DIAG MAMM W/CAD, BILAT MR#: [id number] Acct: [id number] Name: LAVON DONALD Rep #: [id number] : 1970 F 54 From: Jordyn Spencer MD PCP: Dr. Gricel Mccray MD Status: REG CLI Study:DIAG MAMM W/CAD, BILAT Date of Exam: 09/19/24 Exam# [id number] Ordering Dr: BRANDON KRISHNA EXAM: DIAG MAMM [...] be mailed to the patient. Reading Location: [id number] CC: Dr. Gricel Mccray MD; TYSON LAZCANO ~ Floor Specialist: Signed [facility] Study report [facility] Imaging Services [address] [place] [id number] Bilat Brst Mike Stand Alone MR#: [id number] Acct: [id number] Name: LAVON DONALD Rep #: [id number] : 1970 F 54 From: Jordyn Spencer MD PCP: Dr. Gricel Mccray MD Status: [facility] Study:Bilat Brst Mike Stand Alone Date of Exa m: 09/19/24 Exam# [id number] Ordering Dr: BRANDON KRISHNA EXAM: DIAG MAMM [...] be mailed to the patient. Reading Location: [facility] CC: Dr. Gricel Mccray MD; TYSON LAZCANO ~ Floor Specialist: Signed [facility] DIAG MAMM W/CAD, BILATon DIAG MAMM W/CAD, BILAT [facility] Imaging Services [address] [place] [id number] DIAG MAMM W/CAD, BILAT MR#: [id number] Acct: [id number] Name: LAVON DONALD Rep #: [id number] : 1970 F 54 From: Lisa Spencer MD PCP: Dr. Gricel Mccray MD Status: [facility] Study: DIAG MAMM W/CAD, BILAT Date of Exam: 09/19/24 Exam# [id number] Ordering Dr: STEPHEN KRISHNA EXAM: DIAG MAMM [...] be mailed to the patient. Reading Location: [facility] CC: Dr. Gricel Mccray MD; TYSON LAZCANO Floor Specialist: Signed Normal [facility] Basophil percentageOrdered B y: Gricel Mccray on 10-27-2022 Bilirubin [Mass/Vol] 0.40 mg/dL 0.20-1.[address] [facility] Comment on above: For patients on eltr ombopag therapy, use of Dimension [place] TBIL is not recommended. Protein [Mass/Vol] 7.1 g/dL 6.4-8.2 [facility] Direct bilirubinOrdered By: Gricel Mccray on 10-27-2022 Bilirubin.direct [Mass/Vol] 0.11 mg/dL 0.00-0.30 [facility] Laboratory - Chemistry and C hemistry - challengeOrdered By: Gricel Mccray on 10-27-2022 ALP [Catalytic activity/Vol] 70 U/L 45-117 [facility] ALT [Catalytic activity/Vol] 29 U/L 13-56 [facility] Globulin (S) [Mass/Vol] 3.6 g/dL 2.2-4.2 [facility] Serum or plasma albumin dodie urement (mass/volume)Ordered By: Gricel Mccray on 10-27-2022 Albumin [Mass/Vol] 3.5 g/dL 3.2-5.0 [facility] Thin prep Papanicolaou smear with manual screeningOrdered By: Gricel Mccray on 10-27-2022 Thin prep Papanicolaou smear with manual screening 19 U/L 15-37 [facility] Absolute lymphocyte countOrd ered By: Dr. Mccray on 10-05-2022 Lymphocytes Auto (Unsp spec) [#/Vol] 1.85 10*3/uL 0.83-4.51 [facility] Basophil percentageOrdered B y: Dr. Mccray on 10-05-2022 Basophils/100 WBC (Bld) 0.6 % 0-1 [facility] Bilirubin [Mass/Vol] 0.40 mg/dL 0.20-1.[address] [facility] Comment on above: For patients on eltr ombopag therapy, use of Dimension [place] TBIL is not recommended. Chloride [Moles/Vol] 111 mmol/L 98-[address] [facility] Cholesterol [Mass/Vol] 223 mg/dL <200 [facility] Comment on above: <200 mg/dL Desirable 200-240 mg/dL Borderline >240 mg/dL High Risk Eosinophils/100 WBC (Bld) 2.5 % 0-5 [facility] Glucose [Mass/Vol] 85 mg/dL 74-106 [facility] Neutrophils (Bld) [#/Vol] 2.3 10*3/uL 2.0-7.7 [facility] Neutrophils/100 WBC (Bld) 48.6 % 47-70 [facility] Potassium [Moles/Vol] 4.0 mmol/L 3.5-5.1 [facility] Protein [Mass/Vol] 7.1 g/dL 6.4-8.2 [facility] Sodium [Moles/Vol] 142 mmol/L 136-145 [facility] Triglyceride [Mass/Vol] 58 mg/dL <199 [facility] Comment on above: The drugs N-Acetylcy steine and Metamizole may falsely depress this assay.Serum Triglycerides Reference Interval Normal <150 mg/dL Borderline high 150 - 199 mg/dL High 200 - 499 mg/dL Very High > or = 500 mg/dL WBC (Bld) [#/Vol] 4.8 10*3/uL 4.4-11.0 [facility] Blood erythrocytes count (nu mber/volume)Ordered By: Dr. Mccray on 10-05-2022 RBC (Bld) [#/Vol] 3.88 10*6/uL 4.2-5.4 [facility] Blood hemoglobin measurement (mass/volume)Ordered By: Dr. Mccray on 10-05-2022 Hemoglobin (Bld) [Mass/Vol] 11.6 g/dL 12.0-15.0 [facility] Blood lymphocytes/100 leukoc ytesOrdered By: Dr. Mccray on 10-05-2022 Lymphocytes/100 WBC (Bld) 38.9 % 19-41 [facility] Blood monocytes/100 leukocyt esOrdered By: Dr. Mccray on 10-05-2022 Monocytes/100 WBC (Bld) 9.0 % 0-10 [facility] Blood platelet mean volumeOr dered By: Dr. Mccray on 10-05-2022 Platelet mean volume (Bld) [Entitic vol] 9.5 fL 6.2-12.0 [facility] Determination of erythrocyte mean corpuscular volume (MCV)Ordered By: Dr. Mccray on 10-05-2022 MCV (RBC) [Entitic vol] 91.0 fL 81-99 [facility] Hematocrit Auto (Bld) [Volum e fraction]Ordered By: Dr. Mccray on 10-05-2022 Hematocrit (Bld) [Volume fraction] 35.3 % 37-47 [facility] Laboratory - Chemistry and C hemistry - challengeOrdered By: Dr. Mccray on 10-05-2022 ALP [Catalytic activity/Vol] 64 U/L 45-117 [facility] ALT [Catalytic activity/Vol] 83 U/L 13-56 [facility] CO2 [Moles/Vol] 25.0 mmol/L 21.0-32.0 [facility] Globulin (S) [Mass/Vol] 3.4 g/dL 2.2-4.2 [facility] Urea nitrogen/Creatinine [Mass ratio] 20.2 mg/mg 10-20 [facility] Laboratory - Hematology and Cell countsOrdered By: Dr. Mccray on 10-05-2022 Erythrocyte distribution width (RBC) [Entitic vol] 45.2 fL 35.1-43.9 [facility] Erythrocyte distribution width (RBC) [Ratio] 13.6 % 11.6-14.6 [facility] Immature granulocytes/100 WBC (Bld) 0.400 % 0.0-0.9 [facility] Comment on above: IG% - Immature Granu locytes (promyelocytes, myelocytes and metamyelocytes) > 1% indicates that a LEFT SHIFT is Present. MCH (RBC) [Entitic mass] 29.9 pg 27.0-32.0 [facility] Nucleated RBC/100 WBC (Bld) [Ratio] 0 % 0-5 [facility] MCHC Auto (RBC) [Mass/Vol]Or dered By: Dr. Mccray on 10-05-2022 MCHC (RBC) [Mass/Vol] 32.9 g/dL 32-36 [facility] No Panel InformationOrdered By: Dr. Mccray on 10-05-2022 Estimated GFR (MDRD) Amer 98 mL/min >60 [facility] Comment on above: GFR Calc Estimated GFR (MDRD) Non-Af Amer 81 mL/min >60 [facility] Comment on above: Non- GFR Calc Thyroid Stimulating Hormone (TSH) 1.51 uIU/mL 0.358-3.74 [facility] Vitamin D 25-Hydroxy 24.4 ng/mL [facility] Comment on above: Vitamin D 25(OH) Sta tus Range Deficiency <20 ng/mL (50nmol/L) Insufficiency 20 - 30 ng/mL (50 - 75 nmol/L) Sufficiency 30 - 100 ng/mL (75 - 250 nmol/L) Toxicity >100 ng/mL (>250 nmol/L) Platelets bldOrdered By: Dr. Mccray on 10-05-2022 Platelets (Bld) [#/Vol] 249 10*3/uL 150-450 [facility] Serum or plasma albumin dodie urement (mass/volume)Ordered By: Dr. Mccray on 10-05-2022 Albumin [Mass/Vol] 3.7 g/dL 3.2-5.0 [facility] Serum or plasma albumin/glob ulin mass ratioOrdered By: Dr. Mccray on 10-05-2022 Albumin/Globulin [Mass ratio] 1.1 {ratio} 0.9-2.4 [facility] Serum or plasma calcium dodie urement (mass/volume)Ordered By: Dr. Mccray on 10-05-2022 Calcium [Mass/Vol] 8.8 mg/dL 8.5-10.1 [facility] Serum or plasma cholesterol in HDL measurement (mass/volume)Ordered By: Dr. Mccray on 10-05-2022 Cholesterol in HDL [Mass/Vol] 67 mg/dL >40 [facility] Comment on above: The drugs N-Acetylcy steine and Metamizole may falsely depress this assay. Reference Range HDL <40 mg/dL Low HDL Cholesterol HDL >or= 60 mg/dL High HDL Cholesterol Serum or plasma cholesterol in VLDL measurement (mass/volume)Ordered By: Dr. Mccray on 10-05-2022 Cholesterol in VLDL [Mass/Vol] 12 mg/dL 5-40 [facility] Serum or plasma creatinine m easurement (mass/volume)Ordered By: Dr. Mccray on 10-05-2022 Creatinine [Mass/Vol] 0.79 mg/dL 0.55-1.02 [facility] Comment on above: The validity of the calculated GFR & GFRAA in patients over 70 years has not been determined. Clinical correlation is essential. Serum or plasma low density lipoprotein (LDL) cholesterol measurement (mass/volume)Ordered By: Dr. Mccray on 10-05-2022 Cholesterol in LDL [Mass/Vol] 144 mg/dL 0-130 [facility] Serum or plasma urea nitroge n measurement (mass/volume)Ordered By: Dr. Mccray on 10-05-2022 Urea nitrogen [Mass/Vol] 16 mg/dL 7-18 [facility] Thin prep Papanicolaou smear with manual screeningOrdered By: Dr. Mccray on 10-05-2022 Thin prep Papanicolaou smear with manual screening 263 U/L 15-37 [facility] Thin prep Papanicolaou smear with manual screening 6 5-15 [facility] Vital Signs Date Time Vital Sign Value Performing Clinician Carmen dinh 10-24-2022 09:09-0400 Body height 154.[address] Gricel Mccray Work Phone: [facility] 10-24-2022 09:09-0400 Body mass index (BMI) [Ratio] 27.6 kg/m2 Dr. Gricel Mccray Work Phone: [facility] 10-24-2022 09:09-0400 Body temperature 97.2 [degF] Dr. Gricel Mccray Work Phone: [facility] 10-24-2022 09:09-0400 Body weight 66.[address] Gricel Mccray Work Phone: [facility] 10-24-2022 09:09-0400 Diastolic blood pressure 84 mm[Hg] Dr. Gricel Mccray Work Phone: [facility] 10-24-2022 09:09-0400 Heart rate 62 /min Dr. Gricel Mccray Work Phone: [facility] 10-24-2022 09:09-0400 Respiratory rate 17 /min Dr. Gricel Mccray Work Phone: [facility] 10-24-2022 09:09-0400 SaO2% (BldA) [Mass fraction] 98 % Dr. Gricel Mccray Work Phone: [facility] 10-24-2022 09:09-0400 Systolic blood pressure 127 mm[Hg] Dr. Gricel Mccray Work Phone: [facility] 10-04-2022 10:02-0400 Body height 154.[address] Gricel Mccray Work Phone: [facility] 10-04-2022 10:02-0400 Body mass index (BMI) [Ratio] 28.4 kg/m2 Dr. Gricel Mccray Work Phone: [facility] 10-04-2022 10:02-0400 Body temperature 97.6 [degF] Dr. Gricel Mccray Work Phone: [facility] 10-04-2022 10:02-0400 Body weight 68.[address] Gricel Mccray Work Phone: [facility] 10-04-2022 10:02-0400 Diastolic blood pressure 82 mm[Hg] Dr. Gricel Mccray Work Phone: [facility] 10-04-2022 10:02-0400 Heart rate 72 /min Dr. Gricel Mccray Work Phone: [facility] 10-04-2022 10:02-0400 Respiratory rate 18 /min Dr. Gricel Mccray Work Phone: [facility] 10-04-2022 10:02-0400 SaO2% (BldA) [Mass fraction] 97 % Dr. Gricel Mccray Work Phone: [facility] 10-04-2022 10:02-0400 Systolic blood pressure 122 mm[Hg] Dr. Gricel Mccray Work Phone: [facility] Encounters Encounter Date Encounter Type Care Provider Facility Start: 09-19-2024 End: 09-19-[address] Gricel Mccray MD Work Phone: [facility] Work Phone: Start: 09-19-2024 End: 09-19-2024 Patient encounter procedure STEPHEN MEHTA -Outpatient Breast Imaging Work Phone: Start: 09-19-2024 End: 09-19-2024 ambulatory STEPHEN KRISHNA Facility:[facility] Start: 04-28-2024 End: 04-28-2024 ambulatory ABUNDIO HAMZAH Facility:[facility] Start: 03-28-2024 End: 03-28-2024 Transcribe Orders Provider Not In System [facility] Comment on above: Chronic pelvic pain in female (Primary Dx); Endometriosis Start: 10-27-2022 End: 10-27-[address] Gricel Mccray Work Phone: [facility] Work Phone: Start: 10-27-2022 End: 10-27-[address] Gricel Mccray Work Phone: [facility]-Laboratory, [facility] Start: 10-24-2022 End: 10-24-[address] Gricel Mccray Work Phone: [facility] Work Phone: Start: 10-12-2022 End: 10-12-[address] Gricel Mccray Work Phone: [facility] Work Phone: Start: 10-12-2022 End: 10-12-[address] Gricel Mccray Work Phone: [facility]-Ultrasound, [facility] Work Phone: Start: 10-06-2022 End: 10-06-[address] Gricel Mccray Work Phone: [facility]-Outpatient Breast Imaging Start: 10-05-2022 End: 10-05-[address] Gricel Mccray Work Phone: [facility] Work Phone: Start: 10-05-2022 End: 10-05-[address] Gricel Mccray Work Phone: [facility]-Laboratory, [facility] Start: 10-04-2022 End: 10-04-[address] Gricel Mccray Work Phone: [facility] Internal Medicine Procedures Date Procedure Procedure [...] Activity Detail Author Start: 10-04-2022 Patient referral [facility] Work Phone: Patient referral [facility] Work Phone: Immunizations Immunization Date Immunization Notes Care Provider Fa [facility] 02-18-2022 Covid Pfizer Bivalen t Booster Dr. Gricel Mccray Work Phone: [facility] Payers Date Payer Category Payer Unknown [id number] 03 2024 Self-pay 2024 Unknown [id number] Unknown [id number] Unknown [id number] Unknown [id number] Unknown [id number] Social History Date Type Detail Facility Start: 10-04-2022 End: 10-24-2022 Tobacco smoking status NHIS Unknown if ever smoked [facility] Start: 1970 Sex Assigned At Female [facility] Gender identity Not on file [facility] Start: 09-25-2023 Tobacco smoking stat us NHIS Ex-smoker (finding) [facility] Radiology Diagnostic study note 09-19-2024 Note Date & Type Note Facility 09-19-2024 Radiology Diagnostic study note [facility] Imaging Services [address] [place] [address] Breast Limited Unilateral MR#: [id number] Acct: [id number] Name: LAVON DONALD Rep #: [id number] : 1970 F 54 From: Jordyn Spencer MD PCP: Dr. Gricel Mccray MD Status: REG CLI Study:Breast Limited Unilateral Date of Exam: 09/19/24 Exam# [id number] Ordering Dr: BRANDON KRISHNA EXAM: DIAG MAMM [...] be mailed to the patient. Reading Location: [id number] CC: Dr. Gricel Mccray MD; TYSON LAZCANO ~ Floor Specialist: Signed [facility] Evaluation note Note Date & Type Note Facility Evaluation note Diagnosis Onset Date Anxiety acute Sleep concern noneactive Screening for colon cancer n oneactive Acquired hypothyroidism none active Screening for cardiovascular condition noneactive Overweight (BMI 25.0-29.9) n oneactive Breast pain, left noneactive Screening for cervical cancer noneactive Grief noneactive Right foot pain noneactive Screening for breast cancer noneactive [facility] Work Phone: Evaluation note Note Date & [...] skin acute Breast pain acute Lipodystrophy acute [facility] Work Phone: Evaluation note Note Date & Type Note Facility Evaluation note Diagnosis Chronic pelvic pain in female- Primary Unspecified symptom associated with female genital organs Endometriosis Endometriosis, site unspecified documented in this encounter [facility] Evaluation note Note Date & Type Note Facility Evaluation note No assessment information availa ble [facility] Work Phone: Reason for referral (narrative) Note Date & Type Note Facility Reason for referral (narrative) No reason for referral information available [facility] Work Phone: Chief Complaint and Reason for [...] section and content) DATE CREATED AUTHOR 10/17/2024 [facility] FOR RECORDS PERTAINING TO PATIENTS WHO [...] BE BASED ON THE PRIMARY CLINICAL RECORDS. [facility]. provides no warranty or guarantee of the accuracy or completeness of information in this document.
--- NOTE | 2025-04-08 19:06 | EX.ED.DYSGE1 ---
HPI History of Present Illness Chief Complaint: Hypertension Narrative Narrative: Chief complaint and HPI: 54-year-old female with past medical history of hypothyroidism presents for evaluation of HTN. Patient states her blood pressure has been elevated for the past 3 weeks. She was seen in our emergency department earlier and discharged home with follow-up with her PCP. Patient states she has an appointment with her PCP on Sunday. Her PCP told her to monitor her blood pressure until then. She states her SBP has been high as the 160s. She notices that it is increased while at work when she is under a lot of stress. Patient states this evening she felt unwell in which this caused her to check her blood pressure and it was elevated. She had some tingling in her face that has since resolved. She denies any shortness of breath, chest pain, abdominal pain, nausea, vomiting. Review of systems: See HPI Medications: As listed on the chart Allergies: As listed on the chart PFSH: Per chart Vital signs: As listed on the chart. Reviewed. Physical exam: Gen: A&O x3, NAD Head: Normocephalic, atraumatic Eyes: No sclera icterus, conjunctiva clear ENT: Moist mucous membranes Neck: Trachea midline, No JVD CV: RRR, no murmurs, no peripheral edema Resp: Lungs CTA BL, no w/r/c GI: Abd soft, non-distended, non-tender, no r/r/g Musc: Full ROM, no deformity Skin: Warm, dry Neuro: Alert, oriented, grossly intact, sensation intact Psych: Cooperative, appropriate mood and affect PFSH PFSH Medical History Endometriosis determined by laparoscopy Polycystic ovary High cholesterol UTI (urinary tract infection) History of foot fracture Endometriosis Wears glasses Hypothyroidism Hx of seasonal allergies Home Medications ?Medication ?Instructions ?Recorded ?Last Taken ?Type bupropion HCl 150 mg 24 hr tablet, 150 mg PO QAM #90 tabs 09/25/23 Unknown Rx extended release (Wellbutrin XL) levothyroxine 75 mcg tablet 75 mcg PO DAILY #30 tabs 09/03/24 Unknown Rx Allergy/AdvReac Type Severity Reaction Status Date / Time No Known Allergies Allergy Verified 04/08/25 18:33 Family History Mother Angina pectoris, unspecified Anxiety Cervical cancer Hypertension Father CVA (cerebral vascular accident) Hypotension Gout Aunt Breast cancer Grandfather Diabetes Grandmother , maternal Cancer Unknown Breast cancer Surgical History S/P LEEP H/O laparoscopy History of removal of ovarian cyst History of bone graft Hx of breast implants, bilateral Social History household members: none housing: house current occupational status: employed 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 [employer] sexually active: No Smoking Status: Former smoker quit date: 02/28/21 pack-years: 4 Electronic Cigarette Use: not used alcohol intake: current Alcohol type: wine details: not since September 2021 substance use type: does not use what type of physical activity do you participate in: walking, running and yoga frequency: 3-4 times per week seatbelt use: always do you feel safe at home: Yes additional social history: Does Take Aspirin As Needed Does Take Ibuprofen As Needed EXAM Physical Exam Const Vital Signs: 04/08/25 18:32 04/08/25 18:43 04/08/25 19:11 Temperature 98.2 F Temperature Source Oral Pulse Rate 66 Respiratory Rate 18 Respiratory Effort Normal Non-Labored Blood Pressure 162/99 H 139/88 H Blood Pressure Mean 120 105 Pulse Ox 99 Oxygen Delivery Method Room Air 04/08/25 21:00 Temperature Temperature Source Pulse Rate 55 L Respiratory Rate 16 Respiratory Effort Blood Pressure 111/85 H Blood Pressure Mean 93 Pulse Ox 100 Oxygen Delivery Method Room Air MDM MDM MDM Narrative Medical decision making narrative: 54-year-old female with past medical history of hypothyroidism presents for evaluation of HTN. Patient states her blood pressure has been elevated for the past 3 weeks. She was seen in our emergency department earlier and discharged home with follow-up with her PCP. Patient states she has an appointment with her PCP on Sunday. Her PCP told her to monitor her blood pressure until then. She states her SBP has been high as the 160s. She notices that it is increased while at work when she is under a lot of stress. Patient states this evening she felt unwell in which this caused her to check her blood pressure and it was elevated. She had some tingling in her face that has since resolved. She denies any shortness of breath, chest pain, abdominal pain, nausea, vomiting. On presentation, patient no acute distress. She is hypertensive with SBP in the 160s. She is currently asymptomatic from this. Differential diagnosis includes but is not limited to hypertension urgency, hypertension emergency, essential HTN. Will give a low-dose hydralazine. Basic labs will be obtained with chest x-ray. Before hydralazine was given, patient's SBP in the 130s. Hydralazine DC'd. EKG and chest x-ray reviewed. CBC unremarkable. Patient has anemia of 11.6. Platelets unremarkable. CMP unremarkable. UA negative for UTI or proteins. Troponin unremarkable x 2. On reevaluation patient has remained asymptomatic. Her blood pressure on reevaluation is 111/85. This is without any medication. I am not convinced that patient has essential hypertension. Upon talking to her more she states that she notices her hypertension is while she is at work or when she is stressed. She thinks there is a big stress/anxiety component to the HTN. Given that her blood pressure is normal now, I fear that if I start her on an antihypertensive we could cause hypotension. Patient lives alone. We spoke about the risks and benefits to starting her on an antihypertensive. She declined at this time which I think is appropriate. She has appointment with her PCP on Sunday. I told her to discuss this with her PCP as she may need more of an anxiety/stress medication that actually a hypertensive. She was told to monitor blood pressure at home. Return back to ED symptoms change or worsen. She confirmed understand the plan. Patient will discharge home. EKG: Interpreted by me/EM physician: EKG shows sinus bradycardia with LVH. Nonspecific T wave abnormalities. Heart rate 59. No QTc prolongation. Diagnostic: Interpreted by me/EM physician: Chest x-ray not pneumonia, effusion, cardiomegaly, pneumothorax. Radiology in agreement. Impression: 1. HTN 2. Anemia Lab Data Labs: Laboratory Results - last 24 hr 04/08/25 04/08/25 04/08/25 19:08 19:25 20:45 WBC 5.2 RBC 4.00 L Hgb 11.6 L Hct 35.1 L MCV 87.8 MCH 29.0 MCHC 33.0 RDW Std Deviation 43.5 RDW Coeff of Fatmata 13.4 Plt Count 235 MPV 9.1 Immature Gran % (Auto) 0.400 Neut % (Auto) 35.7 L Lymph % (Auto) 51.9 H [place] % (Auto) 7.9 Eos % (Auto) 3.3 Baso % (Auto) 0.8 Absolute Neuts (auto) 1.8 L Absolute Lymphs (auto) 2.68 Nucleated RBC % 0 Sodium 142 Potassium 3.8 Chloride 106 Carbon Dioxide 25.4 Anion Gap 11 BUN 10 Creatinine 0.92 Estim Creat Clear Calc 61.55 Est GFR (MDRD) Non-Af 75 BUN/Creatinine Ratio 10.7 Glucose 129 H Calcium 9.1 Total Bilirubin 0.23 AST 22 ALT 16 Alkaline Phosphatase 76 Troponin T High Sens 12 D Troponin T Hi Sens 2 Hr 8 Total Protein 6.8 Albumin 4.3 Globulin 2.5 Albumin/Globulin Ratio 1.7 Urine Color Yellow Urine Clarity Clear Urine pH 7.0 Ur Specific [place] 1.010 Urine Protein Negative Urine Glucose (UA) Normal Urine Ketones Negative Urine Occult Blood Negative Urine Nitrite Negative Urine Bilirubin Negative Urine Urobilinogen Normal Ur Leukocyte Esterase 25 H Urine RBC 0-5 SEEN Urine WBC 0-5 SEEN Ur Squamous Epith Cells 0-5 SEEN Urine Bacteria 0 SEEN Urine Mucus 0 SEEN Radiography Diagnostic Testing: Clinical Impression(s) from Imaging Studies Chest X-Ray 04/08/25 19:02 IMPRESSION: NO ACUTE FINDINGS. Reading [facility] Discharge Plan Triage Chief Complaint: Hypertension ED Provider: Rich Desai Dx/Rx/DC Orders Prescriptions: No Action bupropion HCl [Wellbutrin XL] 150 mg tablet extended release 24 hr 150 mg PO QAM Qty: 90 0RF levothyroxine 75 mcg tablet 75 mcg PO DAILY Qty: 30 0RF [facility] [Primary Care Provider, None] Print Language: Czech
[2025-04-08 19:11] VITALS: BP 139/88
[2025-04-08 19:14] LABS: Hematocrit 35.1 % (37-47); Hemoglobin 11.6 g/dL (12.0-15.0); Immature Granulocytes Count 0.020 X10^3/uL (0.0-0.0); Mean Corp Hgb Conc 33.0 g/dL (32-36); Mean Corpuscular Volume 87.8 fL (81-99); Mean Platelet Vol. 9.1 fl (6.2-12.0); NRBC Flagged by Analyzer 0 % (0-5); Platelet Count 235 K/mm3 (150-450); RBC Distribution Width CV 13.4 % (11.6-14.6); RBC Distribution Width SD 43.5 fl (35.1-43.9); Red Blood Count 4.00 M/mm3 (4.2-5.4); White Blood Count 5.2 K/mm3 (4.4-11.0)
[2025-04-08 19:29] LABS: Mucous, Urine 0 SEEN /hpf (<or=2+)
[2025-04-08 19:57] LABS: AST(SGOT) 22 U/L (<=31); Alanine Aminotransfer ALT/SGPT 16 U/L (<=34); Albumin, Serum 4.3 g/dL (3.5-5.0); Alkaline Phosphatase 76 U/L (35-104); Anion Gap 11 (7-18); BUN 10 mg/dL (4-19); BUN/Creat Ratio 10.7 RATIO (10-20); Calcium,Total 9.1 mg/dL (7.6-11.0); Carbon Dioxide 25.4 mmol/L (20.0-29.0); Chloride 106 mmol/L (96-106); Estimated Creatinine Clearance 61.55 ml/min (50-250); Globulin 2.5 g/dL (2.2-4.2); Glucose 129 mg/dL (70-99); Potassium 3.8 mmol/L (3.5-5.1); Troponin T High Sensitivity 12 ng/L (<=14)
[2025-04-08 20:08] LABS: Color, Urine Yellow (Yellow); Glucose, Dipstick Normal (Normal); Ketone-Dipstick Negative (Negative); Leukocyte Esterase-Dipstick 25 /ul (Negative); Nitrite-Dipstick Negative (Negative); Occult Blood-Urine Negative /ul (Negative); Protein-Dipstick Negative (Negative); Specific Gravity, Urine 1.010 (1.002-1.030); Urine Bilirubin Dipstick Negative (Negative)
[2025-04-08 20:34] LABS: Red Blood Cells-Urine 0-5 SEEN /hpf (0-5); Squamous Epithelial Cells - UA 0-5 SEEN /hpf (5-10)
--- NOTE | 2025-04-08 20:45 | ED.RN ---
Per Dr. Choudhury, draw 2hr trop early. This RN to draw
[2025-04-08 21:00] VITALS: BP 111/85; PULSE 55; RESP 16; O2SAT 100
[2025-04-08 21:27] LABS: Troponin T High Sens 2 HR 8 ng/L (<=14)
[2025-04-08 21:48] VITALS: BP 127/77; PULSE 57; RESP 11; TEMP 36.8; O2SAT 98
== END 2025-04-08 21:52 | disposition home or self-care (01) ==
PROVIDERS: Emergency Provider Surgery; Visit Provider Surgery
DX: I10 Essential (primary) hypertension (principal); D64.9 Anemia, unspecified; Z87.891 Personal history of nicotine dependence
CPT/HCPCS: 71046; 80053; 81001; 84484; 85025; 93005; 99284; A4216